=== PATIENT | female | born 1940 | race Caucasian/White ===

== ENCOUNTER → 2017-01-29 15:22 | Outpatient (CLI) | payer MEDICARE, BC ==
[2013-02-19 10:23] VITALS: BMI 35.9
[~2017-01-29 15:22] MED LIST: ALDENDRONATE PO; ASPIRIN 81 MG E81 MG PO; CALAN SR120 MG PO; DIOVAN HCT 320/1 TA2; KLOR-CON M2020 MEQ PO; MEVACOR40 MG PO; PLAVIX75 MG PO; ULTRAM50 MG PO
== END | disposition home or self-care (01) ==
LOC: D.CT 15:22
DX: I71.4 Abdominal aortic aneurysm, without rupture (principal)

== ENCOUNTER → 2017-02-02 14:14 | Outpatient (CLI) | payer MEDICARE, BC ==
[2013-02-19 10:23] VITALS: BMI 35.9
== END | disposition home or self-care (01) ==
LOC: D.CT 14:14
DX: I65.23 Occlusion and stenosis of bilateral carotid arteries (principal)

== ENCOUNTER → 2018-02-19 10:36 | Outpatient (CLI) | payer MEDICARE, BC ==
[2013-02-19 10:23] VITALS: BMI 35.9
== END | disposition home or self-care (01) ==
LOC: D.US 02-18 12:00
DX: I71.4 Abdominal aortic aneurysm, without rupture (principal); I65.23 Occlusion and stenosis of bilateral carotid arteries

== ENCOUNTER → 2018-08-05 11:47 | Outpatient (CLI) | payer MEDICARE, BC ==
[2013-02-19 10:23] VITALS: BMI 35.9
== END | disposition home or self-care (01) ==
LOC: D.US 11:47
DX: I65.23 Occlusion and stenosis of bilateral carotid arteries (principal)

== ENCOUNTER → 2019-01-30 09:40 | Outpatient (CLI) | payer MEDICARE, BC ==
[2013-02-19 10:23] VITALS: BMI 35.9
== END | disposition home or self-care (01) ==
LOC: D.US 09:40
PROVIDERS: ATTEND Internal Medicine Cardiovascular Disease
DX: I71.4 Abdominal aortic aneurysm, without rupture (principal); I65.23 Occlusion and stenosis of bilateral carotid arteries

== ENCOUNTER → 2020-01-29 09:29 | Outpatient (CLI) | payer MEDICARE, BC ==
[2013-02-19 10:23] VITALS: BMI 35.9
== END | disposition home or self-care (01) ==
LOC: D.US 01-20 13:30 → D.CT 01-20 14:00 → D.US 09:29
PROVIDERS: ATTEND Internal Medicine Cardiovascular Disease
DX: I71.4 Abdominal aortic aneurysm, without rupture (principal); I65.23 Occlusion and stenosis of bilateral carotid arteries